=== PATIENT | female | born 1950 | race Caucasian/White ===

== ENCOUNTER 2018-09-25 15:23 | Emergency (ER) | payer BC ==
[2018-09-25 15:44] VITALS: BP 142/94
--- NOTE | 2018-09-25 16:03 | UC ---
Throat Pain/Nasal Price HPI - HPI Summary HPI Summary: 68-year-old woman comes in with a chief complaint of sore throat. She woke up with a sore throat this morning. It hurts worse to swallow. She does have some sputum production. No recent fevers. She has had some upper respiratory tract infection symptoms for almost 2 weeks now with chest congestion and rhinorrhea. She does have inhalers for COPD. She has had to use her albuterol recently more often due to the congestion. - History of Current Complaint Chief Complaint: UCRespiratory Stated Complaint: POSS STREP Time Seen by Provider: 09/25/18 15:34 Pain Intensity: 5 - Allergies/Home Medications Allergies/Adverse Reactions: Allergies Allergy/AdvReac Type Severity Reaction Status Date / Time No Known Allergies Allergy Verified 09/25/18 15:44 PMH/Surg Hx/FS Hx/Imm Hx Previously Healthy: Yes Cardiovascular History: Hypertension Respiratory History: COPD - Surgical History Surgical History: Yes Surgery Procedure, Year, and Place: hystorectomy, metal plate left ankle, eye lid surgery - Family History Known Family History: Positive: Other - stroke, mother - Social History Alcohol Use: None Substance Use Type: None Smoking Status (MU): Never Smoked Tobacco Review of Systems All Other Systems Reviewed And Are Negative: Yes Constitutional: Positive: Negative Skin: Positive: Negative Eyes: Positive: Negative ENT: Positive: Sore Throat, Nasal Discharge, Sinus Congestion Respiratory: Positive: Other - SEE HPI Cardiovascular: Positive: Negative Gastrointestinal: Positive: Negative Motor: Positive: Negative Neurovascular: Positive: Negative Musculoskeletal: Positive: Negative Neurological: Positive: Negative Psychological: Positive: Negative Is Patient Immunocompromised?: No Physical Exam Triage Information Reviewed: Yes Appearance: Well-Appearing, No Pain Distress, Well-Nourished Vital Signs: Initial Vital Signs Temp 98 F 09/25/18 15:38 Pulse 92 09/25/18 15:38 Resp 12 09/25/18 15:38 BP 142/94 09/25/18 15:38 Pulse Ox 100 09/25/18 15:38 Vital Signs Reviewed: Yes Eye Exam: Normal Eyes: Positive: Conjunctiva Clear ENT: Positive: Pharyngeal erythema, TMs normal, Uvula midline Neck: Positive: Supple Respiratory: Positive: Lungs clear, Normal breath sounds, No respiratory distress Cardiovascular: Positive: RRR Musculoskeletal: Positive: Strength Intact, ROM Intact Neurological: Positive: Alert Psychological: Positive: Age Appropriate Behavior Skin Exam: Normal Throat Pain/Nasal Course/Dx - Course Course Of Treatment: Do to symptoms being greater than 10 days and patient preference we will treat with antibiotics days azithromycin. Also follow-up with primary care doctor reevaluation sooner if worse or any questions or concerns. - Differential Dx/Diagnosis Provider Diagnosis: Pharyngitis, Bronchitis Discharge - Sign-Out/Discharge Documenting (check all that apply): Patient Departure All imaging exams completed and their final reports reviewed: No Studies - Discharge Plan Condition: Stable Disposition: HOME Prescriptions: Azithromyxin HUNTER (NF) [Z-Hunter (Zithromax) 250 mg tabs #6] 2 tab PO .TODAY, THEN 1 DAILY #6 tab Patient Education Materials: Pharyngitis (ED), Acute Bronchitis (ED) Referrals: Stefani Frias MD [Primary Care Provider] - Additional Instructions: FOLLOW UP WITH YOUR DOCTOR IF NOT COMPLETELY IMPROVED. GET RECHECKED SOONER IF YOUR CONDITION WORSENS OR ANY QUESTIONS OR CONCERNS. - Billing Disposition and Condition Condition: STABLE Disposition: Home
== END 2018-09-25 16:16 | disposition home or self-care (01) ==
LOC: UCEAST 15:23
DX: J02.9 Acute pharyngitis, unspecified (principal); J40 Bronchitis, not specified as acute or chronic; I10 Essential (primary) hypertension; J44.9 Chronic obstructive pulmonary disease, unspecified
CPT/HCPCS: 87651; 99212; G0463

== ENCOUNTER 2018-10-15 14:05 | Emergency (ER) | payer BC ==
[2018-10-15 14:42] VITALS: BP 116/68
--- NOTE | 2018-10-15 15:15 | UC ---
Back Pain HPI - HPI Summary HPI Summary: 68 y/o female presents to the urgent care c/o left posterior rib pain w/ a bruise s/p falling on top of children's toy at home around 1330pm today. Pt is concerned about rib fracture since she has pain w/ deep breathing and touch. Pt reports pain is 8/10 w/ deep breathing and 4/10 at rest. Pt has not taken any medication to alleviate pain. Pt denies fever, bruise or rash, SOB, AMEZCUA, dizziness, chest pain, abdominal pain, lower back pain, N/V/D. - History of Current Complaint Chief Complaint: UCBackPain Stated Complaint: BACK INJURY Time Seen by Provider: 10/15/18 15:14 Hx Obtained From: Patient ?: No Onset/Duration: Sudden Onset, Lasting Hours - 2 hrs ago Pt fell on top of a toy and injured her lef posterior ribs, Still Present Timing: Constant, Lasting Hours - 2 hrs Severity Initially: Severe Severity Currently: Moderate Pain Intensity: 8 Pain Scale Used: 0-10 Numeric - 10 Back Pain: Is Discrete @ - left posterior ribs pain Character: Sharp - w/ deep breathing Aggravating Factor(s): Movement, Cough, Other - deep breathing Alleviating Factor(s): Rest Associated Signs And Symptoms: Positive: Negative. Negative: Swelling, Redness , Bruising, Fever, Weakness, Abdominal Pain, Flank Pain, Bladder Incontinence, Bowel Incontinence, Weight Loss, Pain with Weight Bearing - Risk Factors AAA Risk Factors: Negative TAD Risk Factors: Negative Cauda Equina Risk Factors: Negative Epidural Abscess Risk Factors: Negative - Allergies/Home Medications Allergies/Adverse Reactions: Allergies Allergy/AdvReac Type Severity Reaction Status Date / Time bee venom protein (honey bee) Allergy Swelling Verified 10/15/18 14:38 PMH/Surg Hx/FS Hx/Imm Hx Previously Healthy: Yes Endocrine History: Dyslipidemia Cardiovascular History: Hypertension Respiratory History: Asthma Other GI/ History: Hiatal hernia - Surgical History Surgical History: Yes Surgery Procedure, Year, and Place: hysterectomy, metal plate left ankle, eye lid surgery - Family History Known Family History: Positive: Hypertension, Other - stroke, mother - Social History Occupation: Retired Lives: With Family Alcohol Use: None Substance Use Type: None Smoking Status (MU): Never Smoked Tobacco Review of Systems All Other Systems Reviewed And Are Negative: Yes Constitutional: Positive: Negative Skin: Positive: Other - mild bruise in the left posterior ribs s/p fall Eyes: Positive: Negative ENT: Positive: Negative Respiratory: Positive: Negative Cardiovascular: Positive: Negative Gastrointestinal: Positive: Negative Genitourinary: Positive: Negative Motor: Positive: Negative Neurovascular: Positive: Negative Musculoskeletal: Positive: Decreased ROM - posterior upper back, Other: - posterior rib pain w/ a bruise s/p fall on estefani of a childrne's toy Neurological: Positive: Negative Psychological: Positive: Negative Is Patient Immunocompromised?: No Physical Exam - Summary Physical Exam Summary: Vital Signs Reviewed: Yes General: well developed, well nourished male sitting in the examining table w/o any apparent distress Eyes: Positive: Conjunctiva Clear - PERRLA, EOMI, fundi grossly normal ENT: Positive: Normal ENT inspection, Hearing grossly normal, Pharynx normal, Nasal congestion - edematous and erythematous nasal mucosa, Nasal drainage - yellowish drainage, TMs normal. Negative: Tonsillar swelling, Tonsillar exudate Neck: Positive: Supple, Nontender, No Lymphadenopathy Respiratory: no orthopnea or dyspnea. Able to speak in full sentences, no retractions or accessory muscle use, no tripod position, stridor, or head bobbing. Positive breath sounds bilaterally. No wheezing, no rhonchi , no crackles or rales. Point tenderness and mild swelling w/o mild ecchymosis around left posterior Ribs 9-11. Cardiovascular: Positive: RRR, No Murmur, Pulses Normal, Brisk Capillary Refill Abdomen Description: Positive: Nontender, No Organomegaly, Soft. Negative: CVA Tenderness (R), CVA Tenderness (L) Bowel Sounds: Positive: Present Musculoskeletal Exam: Normal Musculoskeletal: Positive: Strength Intact, ROM Intact, No Edema Neurological Exam: Normal Psychological Exam: Normal Skin Exam: Normal Triage Information Reviewed: Yes Vital Signs: Initial Vital Signs Temp 98.2 F 10/15/18 14:39 Pulse 86 10/15/18 14:39 Resp 18 10/15/18 14:39 BP 116/68 10/15/18 14:39 Pulse Ox 98 10/15/18 14:39 Back Pain Course/Dx - Course Course Of Treatment: 68 y/o female presents to the urgent care c/o left posterior rib pain w/ a bruise s/p falling on top of children's toy at home around 1330pm today. Pt is concerned about rib fracture since she has pain w/ deep breathing and touch. Pt reports pain is 8/10 w/ deep breathing and 4/10 at rest. Pt has not taken any medication to alleviate pain. Pt denies fever, bruise or rash, SOB, AMEZCUA, dizziness, chest pain, abdominal pain, lower back pain, N/V/D. Hx obtained. Pt is hemodynamically stable, A&OX3, Vital WNL. Pt declined pain medication. Pt given ice.. RT Rib and Chest X-ray ordered to r/o fracture. Impression:REPORT: Minimally displaced fracture of the LEFT 10th rib posteriorly corresponding with the region of clinical concern. No additional fractures evident. Negative for pulmonary contusion, pleural effusion, or pneumothorax. Also Moderately large retrocardiac hiatal hernia. Negative for cardiomegaly. Unremarkable central pulmonary vasculature. Pt decline NSAIDs due to her Hx of Hiatal hernia. Pt given an Incentive Spirometer to improve lung function and avoid atelectasis. Nurse educated Pt on how to use it. Pt Rx Hydrocodone for few days until she sees her PCP next week for further management in her rib fracture. Also advised to avoid strenuous exercise or heavy lifting. D/C instructions explained. Pt understood and agreed w/ plan of care. left clinic ambulating and hemodynamically stable. - Differential Dx/Diagnosis Differential Diagnosis/HQI/PQRI: Fracture, Strain, Sprain, Other - rib fracture , rib contusion, hematoma, pneumothorax Provider Diagnosis: Closed traumatic minimally displaced fracture of one rib of left side, Hematoma and contusion Discharge ED - Sign-Out/Discharge Documenting (check all that apply): Patient Departure - D/C home All imaging exams completed and their final reports reviewed: Yes - Discharge Plan Condition: Stable Disposition: HOME Prescriptions: HYDROcodone/ACETAMIN 5-325 MG* [[place] 5-325 TAB*] 1 tab PO Q8H PRN #9 tab MDD 1g /4hrs-4g/day PRN Reason: Pain - Severe Patient Education Materials: Rib Fracture (ED) Referrals: Stefani Frias MD [Primary Care Provider] - 3 Days Additional Instructions: 1-Please take [place] PO 8hrs prn as instructed after meals to alleviate pain and swelling. rest and avoid strenuous exercise or heavy lifting 2-Please use the Incentive Spirometry you have at home as the Nurse explained to improve lung function 3-If symptoms do not improve or worsen please f/u w/ your PCP in 2-3 days for further evaluation and treatment. - Billing Disposition and Condition Condition: STABLE Disposition: Home - Attestation Statements Provider Attestation: Per institutional requirements, I have reviewed the chart, however, I was not consulted specifically or made aware of this patient by the midlevel provider. I did not personally evaluate, interact with , or disposition this patient.
== END 2018-10-15 16:36 | disposition home or self-care (01) ==
LOC: UCEAST 14:05
DX: S22.32XA Fracture of one rib, left side, initial encounter for closed fracture (principal); W01.198A Fall on same level from slipping, tripping and stumbling with subsequent striking against other object, initial encounter; Y92.019 Unspecified place in single-family (private) house as the place of occurrence of the external cause; E78.5 Hyperlipidemia, unspecified; I10 Essential (primary) hypertension; J45.909 Unspecified asthma, uncomplicated
CPT/HCPCS: 99212; G0463